=== PATIENT | male | born 1970 | race Caucasian/White ===

== ENCOUNTER 2016-11-11 14:35 | Inpatient (IN) | payer MEDICARE ==
[2016-11-11] MEDS ORDERED: IOHEXOL 350 MG/ML 25 ML BOTTLE (ORAL USE) PO PRN (17:45)
[2016-11-11] MEDS ORDERED: RX INFO: IV CONTRAST WAS GIVEN 1 EACH MISC MISCELLANE PRN (17:45)
[2016-11-11] MEDS: ONDANSETRON 4 MG/2 ML VIAL IVP PRN (17:57)
[2016-11-11] MEDS: HYDROmorphone 1 MG/ML 1 ML SYRINGE IM PRN ×2 (18:21→23:32)
[2016-11-11] MEDS: PANTOPRAZOLE 40 MG/10 ML VIAL IVP SCH (20:26)
[2016-11-11] MEDS: HYDROmorphone 2 MG/ML 1 ML SYRINGE IVP PRN (20:30)
[2016-11-11 20:40] LABS: Glucose,Whole Blood 229 mg/dL (75-99)
[2016-11-11 20:40] LABS: Blood Urea Nitrogen 5 mg/dL (9-20); Non-African American GFR(MDRD) >60 (>60 ml/min/1.73 sqM)
[2016-11-11] MEDS: METOCLOPRAMIDE 5 MG/ML 2 ML VIAL IVP PRN (21:23)
[2016-11-11] MEDS: INSULIN LISPRO (humaLOG) 300 UNIT/3 ML VIAL SQ SCH (21:26)
--- NOTE | 2016-11-11 22:03 | CT ---
EXAMINATION TYPE: CT abdomen pelvis w con DATE OF EXAM: 11/11/2016 9:53 PM COMPARISON: NONE HISTORY: Pt states of vomiting and abd pain. CT DLP: 831.4 mGycm CONTRAST: CT scan of the abdomen and pelvis is performed with Oral Contrast and with IV Contrast, patient injec marla with 100 mL of Omnipaque 300. FINDINGS: LUNG BASES-: No visible nodule. No infiltrate. LIVER/GB: No calcified gallstones. No space occupying hepatic lesion. Biliary tree is of normal ca liber. PANCREAS: Is a fluid collection which is noted adjacent to the pancreatic tail and measures 7.5 x 4.4 cm and extends craniocaudally 13.2 cm. This likely reflects a pancreatic pseudocyst. Additional flui d collection is seen adjacent to the pancreatic head measuring 3.4 x 4.1 cm. No active inflammation i s seen of the pancreas at this time. Correlate with amylase and lipase. SPLEEN: No splenic enlargement. No lesion seen. Amount of fluid adjacent to the spleen. Chronic gra nulomas. ADRENALS: No nodule. No thickening. KIDNEYS/BLADDER: No hydronephrosis. No nephrolithiasis. No disctinct renal mass. Urinary bladder g rossly unremarkable. BOWEL: Normal appendix. Normal bowel caliber. No inflammation. GENITAL ORGANS: No gross abnormality. LYMPH NODES: No greater than 1cm abdominal or pelvic lymph nodes are appreciated. AORTA: No significant abnormality. OSSEOUS STRUCTURES: Degenerative and postoperative changes of the lumbar spine. OTHER: No significant additional abnormality is seen. IMPRESSION: 1. Fluid collections adjacent to the pancreas likely reflect pseudocyst formation. No active inflamma tion at this time however correlation with amylase and lipase is advised.
[2016-11-11 23:30] LABS: Hemoglobin A1C 11.1 % (4.2-6.1)
[2016-11-12] MEDS: ONDANSETRON 4 MG/2 ML VIAL IVP PRN ×2 (01:12→10:27)
[2016-11-12 02:14] LABS: Glucose,Whole Blood 234 mg/dL (75-99)
[2016-11-12] MEDS: HYDROmorphone 2 MG/ML 1 ML SYRINGE IVP PRN ×3 (02:17→08:15)
[2016-11-12] MEDS: SODIUM CHLORIDE 0.9% 1,000 ML IV SCH ×2 (02:30→08:24)
[2016-11-12] MEDS: METOCLOPRAMIDE 5 MG/ML 2 ML VIAL IVP PRN (06:52)
[2016-11-12 07:12] LABS: Glucose,Whole Blood 182 mg/dL (75-99)
[2016-11-12 07:28] VITALS: RESP 17
[2016-11-12] MEDS: INSULIN LISPRO (humaLOG) 300 UNIT/3 ML VIAL SQ SCH ×2 (08:15→13:00)
[2016-11-12] MEDS: PANTOPRAZOLE 40 MG/10 ML VIAL IVP SCH (08:15)
[2016-11-12 09:51] VITALS: BMI 29.0
[2016-11-12] MEDS ORDERED: NICOTINE 21MG/24HR PATCH TRANSDERM SCH (10:00)
[2016-11-12 10:44] LABS: Basophils % (A) 0 %; CH 33.1; CHCM 33.4; Eosinophils # (A) 0.1 k/uL (0-0.7); Eosinophils % (A) 1 %; HCT 39.8 % (39.0-53.0); HDW 2.68; HGB 13.2 gm/dL (13.0-17.5); Luc # (Auto) 0.06; Luc % (Auto) 1; Lymphocytes # (A) 1.3 k/uL (1.0-4.8); Lymphocytes % (A) 24 %; MCH 32.9 pg (25.0-35.0); MCHC 33.1 g/dL (31.0-37.0); MCV 99.2 fL (80.0-100.0); Mean Platelet Volume 7.5; Monocytes # (A) 0.3 k/uL (0-1.0); Monocytes % (A) 5 %; Neutrophils # (A) 3.8 k/uL (1.3-7.7); Neutrophils % (A) 69 %; RBC 4.01 m/uL (4.30-5.90); WBC 5.5 k/uL (3.8-10.6); WBC (Perox) 5.99
[2016-11-12 10:47] LABS: ALT 22 U/L (21-72); AST 20 U/L (17-59); Alkaline Phosphatase 74 U/L (38-126); Amylase 66 U/L (30-110); Anion Gap 7 mmol/L; Blood Urea Nitrogen 7 mg/dL (9-20); Carbon Dioxide 26 mmol/L (22-30); Chloride 108 mmol/L (98-107); Cholesterol 208 mg/dL (<200); Glucose 177 mg/dL (74-99); HDL Cholesterol 40 mg/dL (40-60); Non-African American GFR(MDRD) >60 (>60 ml/min/1.73 sqM); Potassium 3.9 mmol/L (3.5-5.1); Sodium 141 mmol/L (137-145); Total Bilirubin 0.6 mg/dL (0.2-1.3); Total Protein 6.5 g/dL (6.3-8.2); Triglycerides 478 mg/dL (<150)
[2016-11-12] MEDS: HYDROmorphone 1 MG/ML 1 ML SYRINGE IVP PRN ×3 (11:16→16:09)
[2016-11-12 11:56] LABS: Glucose,Whole Blood 162 mg/dL (75-99)
[2016-11-12] MEDS ORDERED: GABAPENTIN 400 MG CAP PO SCH (12:30)
--- NOTE | 2016-11-12 13:23 | P.CONS ---
History of Present Illness - Reason for Consult Consult date: 11/12/16 Pseudocyst Requesting physician: Anali Nogueira - History of Present Illness 46-year-old gentleman with a history of hypertriglyceridemia pancreatitis with pseudocyst, diabetes mellitus, GERD, hyperlipidemia, pneumothorax, and nicotine cigarette dependency. Consultation requested for ERCP evaluation. Patient's first attack of severe pancreatitis is about 4-5 years ago and was placed on TPN for an extended period of time. Surgical intervention was not indicated at that time. Patient presents with acute upper abdominal pain for about a week. Denies fever, chills, changes in the color of his urine or stool. No history of medication changes or EtOH abuse. CT scan abdomen and pelvis with contrast reported to large pink reticulocyte pseudocyst. The first pseudocyst noted adjacent to the pancreatic tail measuring 7.5 cm x 4.4 cm x 13 cm. Second fluid collection seen at the pancreatic head measuring 3 cm 4cm. no evidence of cholelithiasis hepatic lesions. Biliary tree of normal caliber. Liver and pancreatic chemistries within normal limits. Hemoglobin 13.2. White count 5.5. Triglycerides 478. Review of Systems Constitutional: Denies fever, chills, sweats, weight gain, or loss. HEENT: Negative for migraines, blurred vision or loss, earaches, drainage, tinnitus, oral mucosal lesions, dysphagia, or odynophagia. Cardiac: Hyperlipidemia. Negative for chest pain, arrhythmias, or palpitation. Respiratory: Nicotine cigarette dependency. Negative for shortness of breath, hemoptysis, cough, or sputum production. Gastrointestinal: See HPI for pertinent findings. Genitourinary: Negative for hematuria, urgency, frequency, polyuria, dysuria, or penile discharge. Musculoskeletal: Back surgery with hardware. Negative for muscle aches, swelling, arthritis, and arthralgias. Neurologic: Negative for stroke or TIA. Endocrine: Diabetes mellitus. Negative for thyroid problems. Skin: Negative for rash or itching. Psychiatric: Negative history for depression and anxiety All systems: negative (See HPI) Past Medical History Past Medical History: Diabetes Mellitus, GERD/Reflux, Hyperlipidemia Additional Past Medical History / Comment(s): "psuedo cyst on pancreas", 1993 spontaneous pneumothorax, "memory problems", spondylothesis, fx tailbone, ddd History of Any Multi-Drug Resistant Organisms: None Reported Past Surgical History: Back Surgery Additional Past Surgical History / Comment(s): x3 back sx, age 11 bx rt neck lymph node -neg, rt sided c/t d/t sponataneous pneumothorax 1993 Past Anesthesia/Blood Transfusion Reactions: No Reported Reaction Past Psychological History: No Psychological Hx Reported Additional Psychological History / Comment(s): pt uses a cane when up. 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 lives at home with and step son. has 5 steps into home. no outside services. Smoking Status: Current every day smoker Past Alcohol Use History: None Reported Past Drug Use History: None Reported - Past Family History Mother Family Medical History: Cancer Father History Unknown: Yes Medications and Allergies Home Medications Medication Instructions Recorded Confirmed Type Carisoprodol [Soma] 350 mg PO TID 11/11/16 11/11/16 History Gabapentin [Neurontin] 1,200 mg PO TID 11/11/16 11/11/16 History Ibuprofen [Motrin] 400 - 800 mg PO Q6HR PRN 11/11/16 11/11/16 History Insulin NPH Hum/Reg Insulin Hm 25 unit SQ BID 11/11/16 11/11/16 History [NovoLIN 70-30 100 UNIT/ML VIAL] hydrOXYzine PAMOATE [Vistaril] 50 mg PO DAILY PRN 11/11/16 11/11/16 History Allergies Allergy/AdvReac Type Severity Reaction Status Date / Time No Known Allergies Allergy Verified 11/11/16 18:34 Physical Exam Vitals: Vital Signs Temp Pulse Resp BP Pulse Ox 11/12/16 07:00 97.9 F 61 17 130/78 96 11/11/16 23:00 97.8 F 64 16 117/73 97 11/11/16 16:57 97.9 F 75 18 144/79 98 Intake and Output 11/11/16 11/12/16 11/12/16 22:59 06:59 14:59 Intake Total 500 1225 Output Total 300 Balance 200 1225 Intake: IV 500 1225 D545 500 875 Sodium Chloride 0.9% 1, 350 000 ml @ 125 mls/hr IV . Q8H POP Rx#:[id number] Output: Emesis 300 Other: Voiding Method Urinal # Voids 1 2 1 Weight 81.647 kg 81.647 kg Patient Weight 11/13/16 06:59 Weight 81.647 kg General appearance: The patient is alert, oriented, in no acute distress. HET: Head is normocephalic and atraumatic. Pupils are equal and reactive. Oropharynx is clear without lesions. Neck: Supple without lymphadenopathy. Trachea midline. Heart: S1 S2. Regular rate and rhythm. Lungs: No crackles or wheezes are heard. Abdomen: Soft, mildly distended, mild tenderness midepigastrium left upper quadrant, with bowel sounds. No peritoneal signs. No palpable organomegaly or masses. Extremities: Normal skin color and turgor. No cyanosis, rash, ulceration, clubbing, or edema. Radial and pedal pulses are 2/4 bilaterally. Neurological: No focal deficits. Strength and sensation are grossly intact. Results CBC & Chem 7: 11/12/16 10:20 11/12/16 10:20 Labs: Abnormal Lab Results - Last 24 Hours (Table) 11/11/16 11/11/16 11/11/16 Range/Units 20:04 20:04 20:37 RBC (4.30-5.90) m/uL Chloride (98-107) mmol/L BUN 5 L (9-20) mg/dL Glucose (74-99) mg/dL POC Glucose (mg/dL) 229 H (75-99) mg/dL Hemoglobin A1c 11.1 H (4.2-6.1) % Triglycerides (<150) mg/dL Cholesterol (<200) mg/dL 11/12/16 11/12/16 11/12/16 Range/Units 02:12 06:56 10:20 RBC (4.30-5.90) m/uL Chloride 108 H (98-107) mmol/L BUN 7 L (9-20) mg/dL Glucose 177 H (74-99) mg/dL POC Glucose (mg/dL) 234 H 182 H (75-99) mg/dL Hemoglobin A1c (4.2-6.1) % Triglycerides 478 H (<150) mg/dL Cholesterol 208 H (<200) mg/dL 11/12/16 11/12/16 Range/Units 10:20 11:54 RBC 4.01 L (4.30-5.90) m/uL Chloride (98-107) mmol/L BUN (9-20) mg/dL Glucose (74-99) mg/dL POC Glucose (mg/dL) 162 H (75-99) mg/dL Hemoglobin A1c (4.2-6.1) % Triglycerides (<150) mg/dL Cholesterol (<200) mg/dL CT scan - abdomen: report reviewed (reviewed by Dr. Andrade) Assessment and Plan (1) Pseudocyst of pancreas Status: Acute (2) History of pancreatitis Status: Acute (3) Hypertriglyceridemia Status: Acute Plan: 1. Recommend patient be transferred to tertiary care center for further evaluation higher level of care for possible endoscopic ultrasound transgastric drainage pancreatic pseudocyst. MRCP cannot be pursued secondary to patient's history of back surgery with hardware. Liver and pancreatic enzymes are within normal limits. There was concern for possible fistulous process contributing to the development of these pseudocysts. ERCP not recommended for workup of possible fistulous process at this time. Thank you for this kind referral and the opportunity to participate in the care of your patient. This consultation was discussed with Dr. Andrade. The impression and plan of care have been directed as dictated.
--- NOTE | 2016-11-12 13:57 | P.GSCN ---
History of Present Illness Consult date: 11/12/16 Reason for Consult: Surgical History of present illness: A 46-year-old male who was transferred from [facility] patients being seen on November 11 with a chief complaint of epigastric persistent pain onset several weeks prior became more symptomatic with a sensation of nausea with poor oral intake. Patient gives a history of having pancreatitis diagnosed 4-5 years ago at that time patient stated he was hospitalized for several months and was placed on TPN for nutritional support. Patient stated at that time there was no surgical intervention warranted. acute pancreatitis resulted in type 2 diabetes. Patient stated that the pancreatitis was felt to be contributed to his elevated triglyceride level. Patient gives no history of alcohol abuse.. Given the above clinical presentation the patient was transferred from [place] to [facility] to be admitted. A surgical consultation was requested. Patient did have a CAT scan of the abdomen pelvis with contrast it did show a large pseudocyst noted labs were drawn the triglyceride level 478 lipase 197 AST and ALT were not elevated and hemoglobin A1c was 11.1 currently patient is on IV hydration and bowel rest his continues to report having epigastric discomfort GI recommendations were noted. They are recommending that the patient be transferred to a tertiary care center for higher level of care possibly endoscopic ultrasound transgastric drainage of the pancreatic cyst may need to be done. They indicate that the MRCP cannot be done secondary to patient's history of having back surgery with hardware Review of Systems Essentially unremarkable except as mentioned in the present illness Past Medical History Past Medical History: Diabetes Mellitus, GERD/Reflux, Hyperlipidemia Additional Past Medical History / Comment(s): "psuedo cyst on pancreas", 1993 spontaneous pneumothorax, "memory problems", spondylothesis, fx tailbone, ddd History of Any Multi-Drug Resistant Organisms: None Reported Past Surgical History: Back Surgery Additional Past Surgical History / Comment(s): x3 back sx, age 11 bx rt neck lymph node -neg, rt sided c/t d/t sponataneous pneumothorax 1993 Past Anesthesia/Blood Transfusion Reactions: No Reported Reaction Past Psychological History: No Psychological Hx Reported Additional Psychological History / Comment(s): pt uses a cane when up. 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 lives at home with and step son. has 5 steps into home. no outside services. Smoking Status: Current every day smoker Past Alcohol Use History: None Reported Past Drug Use History: None Reported - Past Family History Mother Family Medical History: Cancer Father History Unknown: Yes Medications and Allergies Home Medications Medication Instructions Recorded Confirmed Type Carisoprodol [Soma] 350 mg PO TID 11/11/16 11/11/16 History Gabapentin [Neurontin] 1,200 mg PO TID 11/11/16 11/11/16 History Ibuprofen [Motrin] 400 - 800 mg PO Q6HR PRN 11/11/16 11/11/16 History Insulin NPH Hum/Reg Insulin Hm 25 unit SQ BID 11/11/16 11/11/16 History [NovoLIN 70-30 100 UNIT/ML VIAL] hydrOXYzine PAMOATE [Vistaril] 50 mg PO DAILY PRN 11/11/16 11/11/16 History Allergies Allergy/AdvReac Type Severity Reaction Status Date / Time No Known Allergies Allergy Verified 11/11/16 18:34 Surgical - Exam Vital Signs Temp Pulse Resp BP Pulse Ox 97.9 F 75 18 144/79 98 11/11/16 16:57 11/11/16 16:57 11/11/16 16:57 11/11/16 16:57 11/11/16 16:57 GENERAL APPEARANCE: 46-year-old patient is alert, oriented, in no acute distress pleasant continues to report having epigastric discomfort pain medication effective for pain control. VITAL SIGNS: Reviewed HEENT: Head is normocephalic and atraumatic. Pupils are equal and reactive. The nares are patent. Oropharynx is clear without lesions. NECK: Supple without lymphadenopathy. Traches midline. HEART: S1, S2. Regular rate and rhythm. No murmur noted LUNGS: No crackles or wheezes are heard. Essentially clear ABDOMEN: Soft, mildly tender in the left upper quadrant, mildly distended with bowel sounds. No peritoneal signs. No palpable organomegaly or masses. EXTREMITIES: Normal skin color and turgor. No cyanosis, rash, ulceration, clubbing or edema. Radial pedal pulses are 2/4 bilaterally. NEUROLOGICAL: No focal deficits. Strength and sensation are grossly intact. Results - Labs 11/12/16 10:20 11/12/16 10:20 Abnormal Lab Results - Last 24 Hours (Table) 11/11/16 11/11/16 11/11/16 Range/Units 20:04 20:04 20:37 RBC (4.30-5.90) m/uL Chloride (98-107) mmol/L BUN 5 L (9-20) mg/dL Glucose (74-99) mg/dL POC Glucose (mg/dL) 229 H (75-99) mg/dL Hemoglobin A1c 11.1 H (4.2-6.1) % Triglycerides (<150) mg/dL Cholesterol (<200) mg/dL 11/12/16 11/12/16 11/12/16 Range/Units 02:12 06:56 10:20 RBC (4.30-5.90) m/uL Chloride 108 H (98-107) mmol/L BUN 7 L (9-20) mg/dL Glucose 177 H (74-99) mg/dL POC Glucose (mg/dL) 234 H 182 H (75-99) mg/dL Hemoglobin A1c (4.2-6.1) % Triglycerides 478 H (<150) mg/dL Cholesterol 208 H (<200) mg/dL 11/12/16 11/12/16 Range/Units 10:20 11:54 RBC 4.01 L (4.30-5.90) m/uL Chloride (98-107) mmol/L BUN (9-20) mg/dL Glucose (74-99) mg/dL POC Glucose (mg/dL) 162 H (75-99) mg/dL Hemoglobin A1c (4.2-6.1) % Triglycerides (<150) mg/dL Cholesterol (<200) mg/dL Diabetes panel 11/11/16 11/11/16 11/12/16 Range/Units 20:04 20:04 10:20 Sodium 141 (137-145) mmol/L Potassium 3.9 (3.5-5.1) mmol/L Chloride 108 H (98-107) mmol/L Carbon Dioxide 26 (22-30) mmol/L BUN 5 L 7 L (9-20) mg/dL Creatinine 0.78 0.77 (0.66-1.25) mg/dL Glucose 177 H (74-99) mg/dL Hemoglobin A1c 11.1 H (4.2-6.1) % Calcium 9.0 (8.4-10.2) mg/dL AST 20 (17-59) U/L ALT 22 (21-72) U/L Alkaline Phosphatase 74 (38-126) U/L Total Protein 6.5 (6.3-8.2) g/dL Albumin 3.7 (3.5-5.0) g/dL Triglycerides 478 H (<150) mg/dL HDL Cholesterol 40 (40-60) mg/dL Calcium panel 11/12/16 Range/Units 10:20 Calcium 9.0 (8.4-10.2) mg/dL Albumin 3.7 (3.5-5.0) g/dL Pituitary panel 11/11/16 11/12/16 Range/Units 20:04 10:20 Sodium 141 (137-145) mmol/L Potassium 3.9 (3.5-5.1) mmol/L Chloride 108 H (98-107) mmol/L Carbon Dioxide 26 (22-30) mmol/L BUN 5 L 7 L (9-20) mg/dL Creatinine 0.78 0.77 (0.66-1.25) mg/dL Glucose 177 H (74-99) mg/dL Calcium 9.0 (8.4-10.2) mg/dL Adrenal panel 11/11/16 11/12/16 Range/Units 20:04 10:20 Sodium 141 (137-145) mmol/L Potassium 3.9 (3.5-5.1) mmol/L Chloride 108 H (98-107) mmol/L Carbon Dioxide 26 (22-30) mmol/L BUN 5 L 7 L (9-20) mg/dL Creatinine 0.78 0.77 (0.66-1.25) mg/dL Glucose 177 H (74-99) mg/dL Calcium 9.0 (8.4-10.2) mg/dL Total Bilirubin 0.6 (0.2-1.3) mg/dL AST 20 (17-59) U/L ALT 22 (21-72) U/L Alkaline Phosphatase 74 (38-126) U/L Total Protein 6.5 (6.3-8.2) g/dL Albumin 3.7 (3.5-5.0) g/dL Assessment and Plan Plan: Impression Present on admission left upper epigastric pain suspect due to pseudocyst of the pancreas per CAT scan of the abdomen Type 2 diabetes insulin requiring uncontrolled hemoglobin A1c 11.1 History of pancreatitis History of multiple back surgeries Physical debility Hypertriglyceridemia Dyslipidemia Plan No acute surgical intervention at this time do agree with transferring this patient to tertiary care center for higher level care possible need for an endoscopic ultrasound transgastric drainage pancreatic Pseudocyst No further recommendations at this time IV fluid for rehydration Pain control Thank you for this kind referral and the opportunity to participate in the plan of care with your patient The above dictated assessment and findings were discussed with Dr. Nogueira Impression and the plan of care have been dictated as directed. Maira Villanueva nurse practitioner acting as a scribe for Dr. Nogueira
[2016-11-12 15:32] VITALS: BP 147/84; PULSE 73; TEMP 98
--- NOTE | 2016-11-12 15:39 | DS ---
H&P AND DISCHARGE SUMMARY DATE OF ADMISSION: 11/11/2016 DATE OF DISCHARGE: Patient is a 46-year-old gentleman with a history of hypertriglyceridemia-induced pancreatitis about 4 or 5 years ago. He was transferred here because of the severe pain associated with pancreatic pseudocyst. Patient was seen in [facility] because of severe epigastric abdominal pain. CT of the abdomen was obtained which showed pseudocyst which does not appear to be infected. Patient denied any fever or chills. Patient denied any nausea or vomiting. Patient had a pseudocyst adjacent to the pancreatic tail measuring about 7.5 x 4.4 x 13 cm and some fluid collection in the pancreatic head measuring about 3 x 4 cm. Patient was evaluated by Surgery. Patient's triglyceride level is 478. Patient was evaluated by Gastroenterology as well and they are recommending transfer to a higher-level facility for possible cystogastrostomy. No evidence of cholelithiasis. Patient's pain is controlled with opiate medications. REVIEW OF SYSTEMS: CONSTITUTIONAL: No fever, no malaise, no fatigue. HEENT: No recent visual problems or hearing problems. Denied any sore throat. CARDIOVASCULAR: No chest pain, orthopnea, PND, no palpitations, no syncope. PULMONARY: No shortness of breath, no cough, no hemoptysis. GASTROINTESTINAL: As described in HPI. NEUROLOGICAL: No headaches, no weakness, no numbness. HEMATOLOGICAL: Denies any bleeding or petechiae. GENITOURINARY: Denies any burning micturition, frequency, or urgency. MUSCULOSKELETAL/RHEUMATOLOGICAL: Denies any joint pain, swelling, or any muscle pain. ENDOCRINE: Denies any polyuria or polydipsia. The rest of the 14 point review of systems is negative. PAST MEDICAL HISTORY: 1. Diabetes mellitus. 2. Gastroesophageal reflux disease. 3. Hyperlipidemia. 4. Pancreatitis in the past. 5. Hypertriglyceridemia-induced pancreatitis. 6. Spontaneous pneumothorax in the past. SOCIAL HISTORY: Patient does smoke. Denied any alcohol abuse or any drug abuse. FAMILY HISTORY: Significant for mother with cancer. Home medications include: 1. Carisoprodol. 2. Gabapentin. 3. Ibuprofen. 4. NPH 70/30, 25 units twice a day. 5. Hydroxyzine. ALLERGIES: NO KNOWN DRUG ALLERGIES. PHYSICAL EXAMINATION: VITAL SIGNS: Temperature 97.9, pulse of 61, respiratory rate of 17. Blood pressure is 130/78. Saturating at 96% on room air. GENERAL: The patient is alert and oriented x3, not in any acute distress. Well developed, well nourished. HEENT: Pupils are round and equally reacting to light. EOMI. No scleral icterus. No conjunctival pallor. Normocephalic, atraumatic. No pharyngeal erythema. No thyromegaly. CARDIOVASCULAR: S1 and S2 present. No murmurs, rubs, or gallops. PULMONARY: Chest is clear to auscultation, no wheezing or crackles. ABDOMEN: Soft. Mildly distended. Minimal tenderness in the epigastric area. No rebound or rigidity. Bowel sounds are present. MUSCULOSKELETAL: No joint swelling or deformity. EXTREMITIES: No cyanosis, clubbing, or pedal edema. NEUROLOGICAL: Gross neurological examination did not reveal any focal deficits. SKIN: No rashes. LABORATORY DATA: Amylase and lipase are essentially within normal limits. CBC, CMP within normal limits as well. Triglyceride level is 478. CT of the abdomen as mentioned above. ASSESSMENT AND PLAN: 1. Pseudocyst of pancreas. Patient is n.p.o. at present and on IV fluids. Patient will be transferred to [facility] for possible cystogastrostomy. 2. Hypertriglyceridemia. Patient's triglycerides when he was diagnosed with pancreatitis were around 2000, now around 478. 3. Nicotine use. Counseling was provided. 4. Type 2 diabetes mellitus. Patient was on sliding scale insulin. As patient is n.p.o. at this time, NPH is on hold. PLAN: Patient will be transferred to [facility] for possible cystogastrostomy. Patient's hemoglobin A1c is 11.1. This dictation is both H&P and discharge summary.
[2016-11-12] MEDS ORDERED: CARISOPRODOL 350 MG TAB PO SCH (16:00)
[2016-11-15 07:16] LABS: Glucose,Whole Blood 90 mg/dL (75-99)
== END 2016-11-12 16:15 | DRG 440 ==
LOC: 3SUR 16:55
PROVIDERS: ADMIT Internal Medicine; ATTEND Internal Medicine
DX: K86.3 Pseudocyst of pancreas (principal); E11.9 Type 2 diabetes mellitus without complications; E78.1 Pure hyperglyceridemia; F17.200 Nicotine dependence, unspecified, uncomplicated; K21.9 Gastro-esophageal reflux disease without esophagitis; Z79.4 Long term (current) use of insulin; Z79.1 Long term (current) use of non-steroidal anti-inflammatories (NSAID); Z79.899 Other long term (current) drug therapy
CPT/HCPCS: 74177; 80053; 80061; 82150; 82565; 83036; 83690; 84520; 85025